=== PATIENT | female | born 1950 | race Caucasian/White ===

== ENCOUNTER 2017-05-14 00:53 | Inpatient (IN) | payer MEDICARE ==
[~2017-05-14] VITALS: Ht 157.5 cm; Wt 67.0 kg
[2017-05-14] VITALS (36 sets, daily range): BP systolic 104–157; BP diastolic 70–112; PULSE 79–101; RESP 16–30; TEMP 97.5–98.1; O2SAT 91–98
[2017-05-14] MEDS ORDERED: SODIUM CHLOR 0.9% 1000 ML INJ 1,000 ML IV ONE (00:57)
--- NOTE | 2017-05-14 01:06 | PD ---
HPI Chief Complaint: Stroke Alert Time Seen by Provider: 00:57 Travel History International Travel<30 days: No Contact w/Intl Traveler<30days: No Traveled to known affect area: No History of Present Illness HPI LAST SEEN NORMAL 930P BY HER THEY WENT TO SLEEP... WOKE UP TO NOISE MADE BY HER AT MIDNIGHT, SHE WAS NOT ABLE TO GET OUT OF BED, 911 CALLED, PER EMS FOUND SLURRED SPEECH , FACIAL DROOP AND ENTIRE LEFT UE/LE PARALYSIS ON SCENE, NL GLUC ON SCENE TRANSPORTED A STROKE ALERT( ENTIRE HISTORY PROVIDED BY , ALSO THEY ARE NOT LOCALS AND ARE VISITING FROM [place]) PER H/O HTN, TIA, DEFIBRILLATOR FOR ARRHYTHMIA AND POSSIBLY CHF BUT DEFINITELY NO STENT OR OPEN HEART SURGERY PFSH Past Medical History ?: Not Social History Tobacco Use: No Allergies-Medications (Allergen,Severity, Reaction): Coded Allergies: Penicillin (Verified Allergy, Unknown, 05/14/17) Reported Meds & Prescriptions Reported Meds & Active Scripts Active Reported [Losartan Potassium] 50 Mg PO DAILY Aspirin 81 Mg Chew 81 Mg CHEW DAILY Potassium Chloride ER (Potassium Chloride) 20 Meq Tab 20 Meq PO DAILY Vitamin D-1000 (Cholecalciferol) 1,000 Unit Tab 1,000 Units PO DAILY Sertraline (Sertraline HCl) 50 Mg Tab 50 Mg PO DAILY Review of Systems ROS Limitations: Clinical Condition Except as stated in HPI: all other systems reviewed are Neg Neurologic: Positive: Weakness, Coordination Problem, Slurred Speech Physical Exam Narrative GENERAL: SKIN: Warm and dry. HEAD: Atraumatic. Normocephalic. EYES: Pupils equal and round. No scleral icterus. No injection or drainage. ENT: No nasal bleeding or discharge. Mucous membranes pink and moist. NECK: Trachea midline. No JVD. CARDIOVASCULAR: Regular rate and rhythm. RESPIRATORY: No accessory muscle use. Clear to auscultation. Breath sounds equal bilaterally. GASTROINTESTINAL: Abdomen soft, non-tender, nondistended. Hepatic and splenic margins not palpable. MUSCULOSKELETAL: Extremities without clubbing, cyanosis, or edema. No obvious deformities. NEUROLOGICAL: Awake and alert. DYSARTHRIC SPEECH, LEFT FACIAL DROOP, BLE 5/5, LUE 4/5, RUE 5/5 PSYCHIATRIC: Appropriate mood and affect; insight and judgment normal. Data Data Last Documented VS Vital Signs Date Time Temp Pulse Resp B/P Pulse Ox O2 Delivery O2 Flow Rate FiO2 05/14/17 02:13 93 145/112 98 05/14/17 02:00 Nasal Cannula 2 05/14/17 01:25 20 Orders Diet Npo (05/14/17 Breakfast) Activity Bed Rest (05/14/17 ) Electrocardiogram (05/14/17 ) I-Stat Creatinine (05/14/17 00:57) I-Stat Profile (05/14/17 00:57) Prothrombin Time / Inr (Pt) (05/14/17 00:57) Act Partial Throm Time (Ptt) (05/14/17 00:57) Complete Blood Count With Diff (05/14/17 00:57) Fibrinogen (05/14/17 00:57) Creatine Kinase (Cpk) (05/14/17 00:57) Troponin I (05/14/17 00:57) Ua Includes Microscopic (05/14/17 00:57) Drug Screen, Random Urine (05/14/17 00:57) Type And Screen (05/14/17 00:57) Chest, Single Ap (05/14/17 ) Cta Brain W Iv Contrast W 3d (05/14/17 00:57) Cta Neck W Iv Contrast W 3d (05/14/17 00:57) Beta Hcg (Quant/Titer) (05/14/17 00:57) Consult Neurology (05/14/17 ) Blood Glucose (05/14/17 00:57) Ecg Monitoring (05/14/17 00:57) Neuro Checks Q2HX12,Q4H (05/14/17 00:57) Nursing Bedside Swallow Assess .ONCE (05/14/17 00:57) Iv Access Insert/Monitor (05/14/17 00:57) NPO (05/14/17 00:57) Oximetry (05/14/17 00:57) Oxygen Administration (05/14/17 00:57) Sodium Chlor 0.9% 1000 Ml Inj (Ns 1000 M (05/14/17 00:57) Resp Oxygen Shahriar C Titrat 1-4 L (05/14/17 00:57) Cath For Specimen (05/14/17 00:57) (Hub Use Only)Inp Phy Cons/Ref (05/14/17 ) Ct Brain W/O Iv Contrast(Rout) (05/14/17 ) Clopidogrel (Plavix) (05/14/17 01:30) Iohexol 350 Inj (Omnipaque 350 Inj) (05/14/17 01:26) Admit Order (Ed Use Only) (05/14/17 02:28) Labs Laboratory Tests Test 05/14/17 05/14/17 01:00 01:43 White Blood Count 6.6 TH/MM3 Red Blood Count 4.57 MIL/MM3 Hemoglobin 16.0 GM/DL Bedside Hemoglobin 16.7 G/DL Hematocrit 46.6 % Bedside Hematocrit 49.0 % Mean Corpuscular Volume 101.8 FL Mean Corpuscular Hemoglobin 34.9 PG Mean Corpuscular Hemoglobin 34.3 % Concent Red Cell Distribution Width 14.3 % Platelet Count 216 TH/MM3 Mean Platelet Volume 7.5 FL Neutrophils (%) (Auto) 64.7 % Lymphocytes (%) (Auto) 22.6 % Monocytes (%) (Auto) 10.6 % Eosinophils (%) (Auto) 1.4 % Basophils (%) (Auto) 0.7 % Neutrophils # (Auto) 4.3 TH/MM3 Lymphocytes # (Auto) 1.5 TH/MM3 Monocytes # (Auto) 0.7 TH/MM3 Eosinophils # (Auto) 0.1 TH/MM3 Basophils # (Auto) 0.0 TH/MM3 CBC Comment DIFF FINAL Differential Comment Prothrombin Time 13.0 SEC Prothromb Time International 1.2 RATIO Ratio Activated Partial 25.2 SEC Thromboplast Time Fibrinogen 366 mg/dL Bedside Sodium 143 MMOL/L Bedside Potassium 3.0 MMOL/L Bedside Chloride 102 MMOL/L Bedside Blood Urea Nitrogen 14 MG/DL Bedside Creatinine 0.5 MG/DL Bedside Glucose 144 MG/DL Hemoglobin A1c 6.6 % Total Creatine Kinase 86 U/L Troponin I 0.03 NG/ML Human Chorionic Gonadotropin, 5 MIU/ML Quant Blood Type A POSITIVE Antibody Screen NEGATIVE Blood Bank Comment Urine Color YELLOW Urine Turbidity CLEAR Urine pH 7.0 Urine Specific [place] GREATER THAN 1.050 Urine Protein 100 mg/dL Urine Glucose (UA) NEG mg/dL Urine Ketones NEG mg/dL Urine Occult Blood NEG Urine Nitrite NEG Urine Bilirubin NEG Urine Urobilinogen 4.0 MG/DL Urine Leukocyte Esterase NEG Urine RBC 6 /hpf Urine WBC 1 /hpf Urine Squamous Epithelial 4 /hpf Cells Urine Mucus FEW /lpf Urine Opiates Screen NEG Urine Barbiturates Screen NEG Urine Amphetamines Screen NEG Urine Benzodiazepines Screen NEG Urine Cocaine Screen NEG Urine Cannabinoids Screen NEG MDM Medical Decision Making Medical Screen Exam Complete: Yes Emergency Medical Condition: Yes Medical Record Reviewed: Yes Differential Diagnosis ICH VS ISCHEMIC CVA V HYPOGLYCEMIA V DYSRHYTHMIA V ATYPICAL [place] Narrative Course PATIENT PRESENTED WITH CVA SYMPTOMS, WITHIN TIME FRAME, HOWEVER DUE TO RAPIDITY OF IMPROVEMENT FROM COMPLETE FLACIDITY ON LEFT SIDE TO FULL STRENGTH ON LLE, 4/ 5 ON LUE...BUT WITH LEFT SIDED FACIAL DROOP STILL PRESENT. D/W DR WALL NEUROLOGIST, WHO RECC NO LYTICS Critical Care Narrative CRITICAL CARE NOTE: With evaluation of the patient, labs, EKG, receipt of radiologic studies, administration of medications, reevaluation the patient and discussion of the patient with the admitting physicians, the total critical care time was [60] minutes. Time to perform other separately billable procedures was not included in the critical care time. Physician Communication Physician Communication D/W DR WALL WHO STATED THAT DUE TO SIGNIFICANT IMPROVEMENT THAT PATIENT IS NOT A TPA CANDIDATE, RECC PLAVIX AT THIS POINT PROVIDED CT HEAD DOES NOT SHOW ANY ICH PER RAD DR FERNANDEZ AT 0114., WILL GIVE PLAVIX Diagnosis Primary Impression: ACUTE CVA V TIA Admitting Information Admitting Physician Requests: Admit Scripts Hydrochlorothiazide 25 Mg Tab25 Mg PO DAILY 30 Days Prov:Cuco Huston MD 05/17/17 Carvedilol (Coreg)12.5 Mg Tab25 Mg PO Q12HR 30 Days Prov:Cuco Huston MD 05/17/17 Apixaban (Eliquis)5 Mg Tab5 Mg PO BID 30 Days Prov:Cuco Huston MD 05/17/17 Glenn Ndiaye MD May 14, 2017 01:06
[2017-05-14 01:14] LABS: AUTOMATED NEUTROPHIL # 4.3 TH/MM3 (1.8-7.7); BASOPHIL % 0.7 % (0.0-2.0); EOSINOPHIL # 0.1 TH/MM3 (0-0.4); EOSINOPHIL % 1.4 % (0.0-4.0); HEMATOCRIT 46.6 % (35.0-46.0); HEMO FLAGS DIFF FINAL; LYMPH % 22.6 % (9.0-44.0); LYMPHOCYTE # 1.5 TH/MM3 (1.0-4.8); MEAN CELL VOLUME 101.8 FL (80.0-100.0); MEAN CORPUSCULAR HEMOGLOBIN 34.9 PG (27.0-34.0); MEAN CORPUSCULAR HGB CONC 34.3 % (32.0-36.0); MONO % 10.6 % (0.0-8.0); NEUT % 64.7 % (16.0-70.0); PLATELET COUNT 216 TH/MM3 (150-450); RED BLOOD COUNT 4.57 MIL/MM3 (4.00-5.30); RED CELL DISTRIBUTION WIDTH 14.3 % (11.6-17.2); WHITE BLOOD COUNT 6.6 TH/MM3 (4.0-11.0)
--- NOTE | 2017-05-14 01:16 | RADRPT ---
EXAM DATE/TIME: 05/14/2017 01:03 [facility] COMPARISON: No previous studies available for comparison. INDICATIONS : Stroke alert. Left sided facial weakness. RADIATION DOSE: 56.35 CTDIvol (mGy) This report was called by myself to Dr. Ndiaye at 1: 14 hours. MEDICAL HISTORY : Cerebrovascular disease. SURGICAL HISTORY : None. ENCOUNTER: Initial ACUITY: 1 day PAIN SCALE: Non-responsive LOCATION: cranial TECHNIQUE: Multiple contiguous axial images were obtained of the head. Using automated exposure control and adj ustment of the mA and/or kV according to patient size, radiation dose was kept as low as reasonably a chievable to obtain optimal diagnostic quality images. DICOM format image data is available electro nically for review and comparison. FINDINGS: There is no evidence for intracranial hemorrhage, mass effect, mass lesions, or edema. The visualize d bony structures appear intact. Moderate degree of brain atrophy is seen. Moderate periventricular white matter changes are seen nonspecific mostly consistent with chronic small vessel ischemic change s. There are no signs of acute infarction for technique. CONCLUSION: Chronic and small vessel ischemic changes without any evidence for acute hemorrhage o r mass effect. Bridger Medrano MD on May 14, 2017 at 1:12 Board Certified Radiologist. This report was verified electronically.
[2017-05-14] MEDS ORDERED: IOHEXOL 350 MG/ML 10 ML VIAL (for RAD DIAG) IV ONE (01:26)
[2017-05-14 01:29] LABS: APTT (PATIENT) 25.2 SEC (24.3-30.1); INTERNATIONAL NORMALIZED RATIO 1.2 RATIO
[2017-05-14] MEDS ORDERED: CLOPIDOGREL 300 MG TAB PO ONE ×2 (01:30→12:45)
--- NOTE | 2017-05-14 01:35 | RADRPT ---
EXAM DATE/TIME: 05/14/2017 01:09 [facility] COMPARISON: CT BRAIN W/O CONTRAST, May 14, 2017, 1:03. INDICATIONS : Stroke alert. Left sided weakness. IV CONTRAST: 75 cc Omnipaque 350 (iohexol) IV ; Cumulative dose for multiple exams. RADIATION DOSE: 14.83 CTDIvol (mGy) ; Combined studies MEDICAL HISTORY : Cerebrovascular disease. SURGICAL HISTORY : Pacemaker. ENCOUNTER: Initial ACUITY: 1 day PAIN SCALE: Non-responsive LOCATION: cranial TECHNIQUE: Volumetric scanning was performed using a multi-row detector CT scanner. The data was post processed with a variety of visualization algorithms including full volume maximum intensity projection, multi -planar sliding thin slab reformation, curved planar reformation, and surface rendering techniques. Using automated exposure control and adjustment of the mA and/or kV according to patient size, radiat ion dose was kept as low as reasonably achievable to obtain optimal diagnostic quality images. DICO M format image data is available electronically for review and comparison. FINDINGS: There is excellent visualization of the major intracranial arteries out to the second-order branch ve ssels. There is no evidence for aneurysm, vessel truncation or stenosis, and no evidence for vascula r malformation. There is minimal atherosclerotic plaquing involving the supraclinoid ICA on the left. CONCLUSION: Unremarkable study except for minimal atherosclerotic plaquing on the left side. Bridger Medrano MD on May 14, 2017 at 1:31 Board Certified Radiologist. This report was verified electronically.
[2017-05-14] MEDS ORDERED: SERT-132 PO (01:36)
[2017-05-14] MEDS ORDERED: VITA1000 PO (01:41)
[2017-05-14] MEDS ORDERED: ASPI81CH CHEW (01:41)
[2017-05-14] MEDS ORDERED: POTA-163 PO (01:41)
--- NOTE | 2017-05-14 01:44 | RADRPT ---
EXAM DATE/TIME: 05/14/2017 01:23 [facility] COMPARISON: No previous studies available for comparison. INDICATIONS : Stroke Alert MEDICAL HISTORY : Unobtainable SURGICAL HISTORY : Unobtainable ENCOUNTER: Initial ACUITY: 1 day PAIN SCORE: 6/10 LOCATION: Bilateral chest FINDINGS: The lungs are clear without infiltrate, nodule, or mass. There is no appreciable pleural effusion fo r technique. Heart and mediastinum are unremarkable. Left subclavian transvenous pacer wire is prese nt with tip in the right ventricle. There are atherosclerotic calcifications of the aorta due to marine chronometer assembler pina atherosclerotic disease. CONCLUSION: No acute cardiopulmonary disease. Bridger Medrano MD on May 14, 2017 at 1:41 Board Certified Radiologist. This report was verified electronically.
--- NOTE | 2017-05-14 01:46 | RADRPT ---
EXAM DATE/TIME: 05/14/2017 01:09 [facility] COMPARISON: CTA BRAIN W 3D RECON, May 14, 2017, 1:09. CT BRAIN W/O CONTRAST, May 14, 2017, 1:03. INDICATIONS : Stroke alert. Left sided weakness. IV CONTRAST: 75 cc Omnipaque 350 (iohexol) IV ; Cumulative dose for multiple exams. RADIATION DOSE: 14.83 CTDIvol (mGy) ; Combined studies MEDICAL HISTORY : Cerebrovascular disease. SURGICAL HISTORY : Pacemaker. ENCOUNTER: Initial ACUITY: 1 day PAIN SCALE: Non-responsive LOCATION: neck Elevated flow velocities and ICA/CCA ratios have been found to correlate with increased degrees of vessel stenosis, calculated as percentage of diameter relative to a normal segment of distal ICA/CCA. TECHNIQUE: Volumetric scanning was performed using a multirow detector CT scanner. The data was post processed with a variety of visualization algorithms including full-volume maximum intensity projection, multip lanar sliding thin-slab reformation, curved-planar reformation, and surface-rendering techniques. Us ing automated exposure control and adjustment of the mA and/or kV according to patient size, radiatio n dose was kept as low as reasonably achievable to obtain optimal diagnostic quality images. DICOM f ormat image data is available electronically for review and comparison. FINDINGS: AORTIC ARCH: There is a three-vessel origin of the great vessels from the aorta. No evidence of ostial narrowing. Minimal atherosclerotic plaquing is identified within the aortic arch and bilateral ICAs. RIGHT CAROTID: The common carotid artery is intact. The carotid bulb has a normal configuration without ulceration o r narrowing. The internal carotid artery lumen is smooth without stenosis. The external carotid trace ry is intact. LEFT CAROTID: The common carotid artery is intact. The carotid bulb has a normal configuration without ulceration or narrowing. The internal carotid artery lumen is smooth without stenosis. The external carotid ar courtney is intact. VERTEBRALS: The vertebral arteries have a symmetric diameter. No stenotic lesions are seen. CONCLUSION: Minimal atherosclerotic plaquing, otherwise unremarkable. Bridger Medrano MD on May 14, 2017 at 1:42 Board Certified Radiologist. This report was verified electronically.
[2017-05-14] MEDS ORDERED: FURO40TA PO (01:49)
[2017-05-14] MEDS ORDERED: Losartan Potassium PO (01:49)
[2017-05-14] MEDS ORDERED: METO25TA6 PO (01:49)
[2017-05-14 01:55] LABS: BLOOD, URINE NEG (NEG); GLUCOSE,URINE NEG (NEG); KETONE, URINE NEG (NEG); MUCUS URINE FEW /lpf (OCC); NITRITE,URINE NEG (NEG); SQUAMOUS EPITHELIAL CELL URINE 4 /hpf (0-5); URINE COLOR YELLOW (YELLW/STRAW)
[2017-05-14] MEDS ORDERED: SODIUM CHLORIDE 0.9% FLUSH 5 ML FLUSH IV FLUSH PRN (03:00)
[2017-05-14 04:55] LABS: AMPHETAMINE, URINE NEG (NEG); BARBITURATES, URINE NEG (NEG); COCAINE, URINE NEG (NEG)
--- NOTE | 2017-05-14 11:33 | EKG ---
Date Performed: 05/14/2017 Time Performed: 00:59:07 PTAGE: 67 years EKG: Sinus rhythm WITH OCCASIONAL VENTRICULAR PREMATURE COMPLEXES LEFT ATRIAL ENLARGEMENT Possible SEPTAL MYOCARDIAL I NFARCTION ABNORMAL ECG NO PREVIOUS TRACING DOCTOR: Rajiv Saravia Interpretating Date/Time 05/14/2017 11:31:59
--- NOTE | 2017-05-14 12:37 | HHI.HP ---
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 Patient states that on both episodes she was placed she was on hormone replacement therapy then. 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 Patient tried to get back to bed however was having difficulty getting back to bed. heard her and found her to trying to climb into the bed and was on the side of the bed trying to get into bed. Her speech was very slurred per her . noted the patient appears confused "not really there". Patient reported that her she cannot feel her left side. 911 was called and patient was promptly brought in here and admitted for further evaluation. No seizure activity was reported by . Patient denies any fever chills , nausea or vomiting. Patient baseline have leg swelling at the end of the day. With easy fatigability. Denies any orthopnea. Review of Systems Constitutional: DENIES: Diaphoretic episodes, Fatigue, Fever, Weight gain, Weight loss, Chills, Dizziness, Change in appetite, Night Sweats Endocrine: DENIES: Abnorml menstrual pattern, Heat/cold intolerance, Polydipsia , Polyuria, Polyphagia Eyes: COMPLAINS OF: Vision loss (blind spot of the right eye since 1995) Ears, nose, mouth, throat: DENIES: Tinnitus, Hearing loss, Vertigo, Nasal discharge, Oral lesions, Throat pain, Hoarseness, Ear Pain, Running Nose, Epistaxis, Sinus Pain, Toothache, Odynophagia Respiratory: DENIES: Apneas, Cough, Snoring, Wheezing, Hemoptysis, Sputum production, Shortness of breath Cardiovascular: DENIES: Chest pain, Palpitations, Syncope, Dyspnea on Exertion , PND, Lower Extremity Edema, Orthopnea, Claudication Gastrointestinal: DENIES: Abdominal pain, Black stools, Bloody stools, Constipation, Diarrhea, Nausea, Vomiting, Difficulty Swallowing, Anorexia Genitourinary: DENIES: Abnormal vaginal bleeding, Dysmenorrhea, Dyspareunia, Sexual dysfunction, Urinary frequency, Urinary incontinence, Urgency, Hematuria , Dysuria, Nocturia, Vaginal discharge Musculoskeletal: DENIES: Joint pain, Muscle aches, Stiffness, Joint Swelling, Back pain, Neck pain Integumentary: DENIES: Abnormal pigmentation, Pruritus, Rash, Nail changes, Breast masses, Breast skin changes, Nipple discharge Hematologic/lymphatic: DENIES: Bruising, Lymphadenopathy Immunologic/allergic: DENIES: Eczema, Urticaria Neurologic: DENIES: Abnormal gait, Headache, Localized weakness, Paresthesias, Seizures, Speech Problems, Tremor, Poor Balance Psychiatric: DENIES: Anxiety, Confusion, Mood changes, Depression, Hallucinations, Agitation, Suicidal Ideation, Homicidal Ideation, Delusions Past Family Social History Past Medical History Hypertension CVA involving the right optic nerve with residual but blind spot in 1995 that time patient was on hormone replacement therapy 2005 with left-sided CVA with left-sided weakness through the resolve no residual deficit at that time was also on replacement therapy hormone. Hyperlipidemia but was unable to tolerate statins. Dilated Cardiomyopathy in November [address] When asked about etiology negative for ischemia on cardiac catheter. The specimen to be secondary to an infection probably viral Depression Past Surgical History AICD Reported Medications Zoloft 50 mg daily Toprol-XL 25 mg daily Furosemide 40 mg daily Aspirin 81 mg daily Cozaar 50 mg daily Potassium chloride 20 mEq daily Vitamin D daily Allergies: Coded Allergies: Penicillin (Verified Allergy, Unknown, 05/14/17) Family History Noncontributory Social History Smokes three quarters of a pack per day Occasional night With Blood, Denies Any Substance Abuse Physical Exam Vital Signs Vital Signs Date Time Temp Pulse Resp B/P Pulse Ox O2 Delivery O2 Flow Rate FiO2 05/14/17 06:25 97.7 95 20 142/97 97 05/14/17 05:54 97 132/94 91 Nasal Cannula 2 05/14/17 05:26 92 139/94 91 Nasal Cannula 2 05/14/17 05:02 91 119/77 92 Nasal Cannula 2 05/14/17 04:57 84 132/87 93 Nasal Cannula 2 05/14/17 04:33 89 139/94 94 Nasal Cannula 2 05/14/17 04:23 90 143/93 96 Nasal Cannula 2 05/14/17 03:43 91 140/99 96 Nasal Cannula 2 05/14/17 03:04 96 134/92 94 Nasal Cannula 2 05/14/17 03:02 97 147/99 95 Nasal Cannula 05/14/17 03:01 93 154/107 96 Nasal Cannula 2 05/14/17 02:13 93 145/112 98 05/14/17 02:00 95 141/101 96 Nasal Cannula 2 05/14/17 01:43 97 137/100 98 Nasal Cannula 2 05/14/17 01:41 101 153/97 97 Nasal Cannula 2 05/14/17 01:25 99 20 149/102 98 Nasal Cannula 2 05/14/17 01:24 96 Nasal Cannula 2 05/14/17 01:24 96 Nasal Cannula 2 05/14/17 01:20 98 97 Nasal Cannula 2 05/14/17 01:03 94 18 140/96 96 Nasal Cannula 2 05/14/17 00:56 99 18 148/98 96 Physical Exam GENERAL: This is a well-nourished, well-developed patient, in no apparent distress. SKIN: No rashes, ecchymoses or lesions. Cool and dry. HEAD: Atraumatic. Normocephalic. No temporal or scalp tenderness. EYES: Pupils equal round and reactive. Extraocular motions intact. No scleral icterus. No injection or drainage. ENT: Nose without bleeding,. Throat without erythema, tonsillar hypertrophy or exudate. Uvula midline. Airway patent. NECK: Trachea midline. No JVD or lymphadenopathy. Supple, nontender, no meningeal signs. No bruit CARDIOVASCULAR: Regular rate and rhythm without murmurs, gallops, or rubs. RESPIRATORY: Clear to auscultation. Breath sounds equal bilaterally. No wheezes , rales, or rhonchi. GASTROINTESTINAL: Abdomen soft, non-tender, nondistended. No hepato-splenomegaly , or palpable masses. No guarding. MUSCULOSKELETAL: Extremities without clubbing, cyanosis, or edema. No joint tenderness, effusion, or edema noted. No calf tenderness. Negative Homans sign bilaterally. NEUROLOGICAL: Awake and alert. Oriented to place and person. Speech mildly slurred. Her this is much improved since the onset this morning Cranial nerves II through XII intact. Motor and sensory grossly within normal limits. Five out of 5 muscle strength in all muscle groups. Slurred speech. Gait testing deferred Laboratory Laboratory Tests Test 05/14/17 05/14/17 01:00 01:43 White Blood Count 6.6 Red Blood Count 4.57 Hemoglobin 16.0 Bedside Hemoglobin 16.7 Hematocrit 46.6 Bedside Hematocrit 49.0 Mean Corpuscular Volume 101.8 Mean Corpuscular Hemoglobin 34.9 Mean Corpuscular Hemoglobin 34.3 Concent Red Cell Distribution Width 14.3 Platelet Count 216 Mean Platelet Volume 7.5 Neutrophils (%) (Auto) 64.7 Lymphocytes (%) (Auto) 22.6 Monocytes (%) (Auto) 10.6 Eosinophils (%) (Auto) 1.4 Basophils (%) (Auto) 0.7 Neutrophils # (Auto) 4.3 Lymphocytes # (Auto) 1.5 Monocytes # (Auto) 0.7 Eosinophils # (Auto) 0.1 Basophils # (Auto) 0.0 CBC Comment DIFF FINAL Differential Comment Prothrombin Time 13.0 Prothromb Time International 1.2 Ratio Activated Partial 25.2 Thromboplast Time Fibrinogen 366 Bedside Sodium 143 Bedside Potassium 3.0 Bedside Chloride 102 Bedside Blood Urea Nitrogen 14 Bedside Creatinine 0.5 Bedside Glucose 144 Total Creatine Kinase 86 Troponin I 0.03 Human Chorionic Gonadotropin, 5 Quant Blood Type A POSITIVE Antibody Screen NEGATIVE Blood Bank Comment Urine Color YELLOW Urine Turbidity CLEAR Urine pH 7.0 Urine Specific [place] GREATER THAN 1.050 Urine Protein 100 Urine Glucose (UA) NEG Urine Ketones NEG Urine Occult Blood NEG Urine Nitrite NEG Urine Bilirubin NEG Urine Urobilinogen 4.0 Urine Leukocyte Esterase NEG Urine RBC 6 Urine WBC 1 Urine Squamous Epithelial 4 Cells Urine Mucus FEW Urine Opiates Screen NEG Urine Barbiturates Screen NEG Urine Amphetamines Screen NEG Urine Benzodiazepines Screen NEG Urine Cocaine Screen NEG Urine Cannabinoids Screen NEG Result Diagram: 05/14/17 0100 Imaging Last 24 hours Impressions Neck CTA 05/14/17 0057 Signed Impressions: Service Date/Time: Sunday, May 14, 2017 01:09 - CONCLUSION: Minimal atherosclerotic plaquing, otherwise unremarkable. Bridger Medrano MD Head CTA 05/14/17 0057 Signed Impressions: Service Date/Time: Sunday, May 14, 2017 01:09 - CONCLUSION: Unremarkable study except for minimal atherosclerotic plaquing on the left side. Bridger Medrano MD Head CT 05/14/17 0000 Signed Impressions: Service Date/Time: Sunday, May 14, 2017 01:03 - CONCLUSION: Chronic and small vessel ischemic changes without any evidence for acute hemorrhage or mass effect. Bridger Medrano MD Chest X-Ray 05/14/17 0000 Signed Impressions: Service Date/Time: Sunday, May 14, 2017 01:23 - CONCLUSION: No acute cardiopulmonary disease. Bridger Medrano MD Assessment and Plan Assessment and Plan 67-year-old female presenting with recurrent CVA presenting with slurring of speech and left-sided weakness TIA rule out CVA neurologic symptoms improving- left-sided weakness and speech improved Continue flat in bed continue on normal saline continue on aspirin. We'll add Plavix 75 mg daily. Consult neurology service Neuro vitals monitoring Workup with 2-D echo CTA neck shows no stenosis in the carotids. PT/OT speech therapy consult HYpokalemia- replace IV. recheck in am Per patient she was prescribed Potassium pills- not filled yet History of hypertension monitor. permissive hypertension. restart home meds in next few days History of Cardiomyopathy status post AICD . Not in clinical failure. Check a 2-D echo. patient on ARB History of hyperlipidemia unable to tolerate statins dietitian consult. Check a baseline lipid panel History of depression. Lovenox for DVT prophylaxis Discussed Condition With Patient and at bedside Physician Certification 2 Midnight Certification Type: Admission for Inpatient Services Order for Inpatient Services The services are ordered in accordance with Medicare regulations or non- Medicare payer requirements, as applicable. In the case of services not specified as inpatient-only, they are appropriately provided as inpatient services in accordance with the 2-midnight benchmark. Estimated LOS (days): 3 days is the estimated time the patient will need to remain in the hospital, assuming treatment plan goals are met and no additional complications. Post-Hospital Plan: Not yet determined Cuco Huston MD May 14, 2017 12:37 Cuco Huston MD May 14, 2017 12:37
--- NOTE | 2017-05-14 12:59 | ECHRPT ---
Indication: CVA/TIA CONCLUSIONS BP: 142 / 97 HR: 95 Rhythm: MEASUREMENTS (Male / Female) Normal Values Technical Quality: 2D ECHO LV Diastolic Diameter PLAX 4.9 cm 4.2 - 5.9 / 3.9 - 5.3 cm LV Systolic Diameter PLAX 4.4 cm IVS Diastolic Thickness 0.8 cm 0.6 - 1.0 / 0.6 - 0.9 cm LVPW Diastolic Thickness 0.8 cm 0.6 - 1.0 / 0.6 - 0.9 cm LV Relative Wall Thickness 0.3 RV Internal Dim ED PLAX 2.1 cm LA Systolic Diameter LX 4.5 cm 3.0 - 4.0 / 2.7 - 3.8 cm M-MODE Aortic Root Diameter MM 3.1 cm AV Cusp Separation MM 2.0 cm DOPPLER MV Peak Velocity 120.0 cm/s MV Peak Gradient 5.8 mmHg MV Mean Velocity 56.3 cm/s MV Mean Gradient 2.0 mmHg MV Area PHT 3.9 cm MR Peak Velocity 492.0 cm/s MR Peak Gradient 96.8 mmHg Mitral E Point Velocity 84.3 cm/s Mitral A Point Velocity 50.7 cm/s Mitral E to A Ratio 1.7 LV E' Lateral Velocity 9.2 cm/s Mitral E to LV E' Lateral Ratio 9.2 TR Peak Velocity 335.0 cm/s TR Peak Gradient 44.9 mmHg FINDINGS LEFT VENTRICLE Mildly dilated left ventricle. Wall thickness is normal. The left ventricular systolic function is severely reduced with an estimated ejection fraction in th e range of 15-20%. There is diffuse global hypokinesis with distinct regional wall motion abnormalities. RIGHT VENTRICLE Normal right ventricular size and systolic function. LEFT ATRIUM The left atrial size is mildly dilated. RIGHT ATRIUM The right atrial size is mildly dilated. ATRIAL SEPTUM Atrial septal aneurysm is present (benign finding). No atrial level shunt is demonstrated by color flow Doppler interrogation. MITRAL VALVE Mitral annular calcification is present. Mild mitral valve regurgitation. Mild thickening of the mitral valve leaflets. AORTIC VALVE Trileaflet aortic valve. No aortic valve stenosis or regurgitation. TRICUSPID VALVE There is moderate tricuspid regurgitation. There is estimated moderate pulmonary hypertension present (50mmHg). PULMONARY VALVE The pulmonary valve is not well visualized. VESSELS The inferior vena cava is normal in size. PERICARDIUM No pericardial effusion. Campbell Gilliam MD (Electronically Signed) Final Date:14 May 2017 12:58
[2017-05-14] MEDS ORDERED: cloNIDine HCL 0.1 MG TAB PO PRN (13:15)
--- NOTE | 2017-05-14 13:56 | PD.CONS ---
HPI Service Rehabilitation Medicine Consult Requested By Dr. Hernandez Reason for Consult Comprehensive rehabilitation evaluation. Primary Care Physician Unknown History of Present Illness Julia Jc is a 67 year old right hand dominant female admitted to [facility] 05/04/17 with left hand incoordination, slurred speech and left hemisensory impairment. Head CT showed chronic small vessel ischemic changes but no acute intracranial abnormality. CTA neck minimal atherosclerotic plaque and CTA head showed minimal atherosclerotic plaque left side. Echo showed EF 15-20% with diffuse global hypokinesis with distinct regional wall abnormality. She has been started on Lovenox per Neurology recommendations. Review of Systems Constitutional: DENIES: Fatigue Eyes: DENIES: Diplopia Ears, nose, mouth, throat: DENIES: Throat pain Respiratory: DENIES: Shortness of breath Cardiovascular: DENIES: Chest pain Gastrointestinal: DENIES: Abdominal pain Genitourinary: DENIES: Urinary incontinence Neurologic: DENIES: Headache, Localized weakness, Paresthesias, Speech Problems Psychiatric: DENIES: Confusion Past Family Social History Allergies: Coded Allergies: Penicillin (Verified Allergy, Unknown, 05/14/17) Past Medical History HTN Hyperlipidemia cardiomyopathy CVA X depression Past Surgical History AICD Current Medications Current Medications Medications (Trade) Dose Ordered Sig/Victoriano Route Start Time Stop Time Status Last Admin (NS 1000 ml Inj) 1,000 ml @ 70 mls/hr [id number] ONCE IV 05/14/17 00:57 05/14/17 15:14 05/14/17 01:34 (NS Flush) 2 ml BID IV FLUSH 05/14/17 09:00 IV Flush 2 ml 2 ml UNSCH PRN IV FLUSH 05/14/17 03:00 (KCl 10 Meq Premix Inj) 100 ml @ 100 mls/hr Q1H IV 05/14/17 13:00 05/14/17 15:59 Clopidogrel Bisulfate 75 mg 75 mg DAILY PO 05/15/17 09:00 (KCl Inj/D5W-NS 1000 ml Inj) 1,005 ml @ 50 mls/hr Q20H6M IV 05/14/17 14:00 (Lovenox Inj) 30 mg Q24H SQ 05/14/17 14:00 (Catapres) 0.1 mg Q6H PRN PO 05/14/17 13:15 Family History Mother: age 96. No medical illnesses Social History Lives in [place] with . [employer]ISH[employer] was independent with all mobility and ADL' s. Smokes 3/4 ppd for 40 years. One ETOH drink per night. Exam I&O / VS Vital Signs Date Time Temp Pulse Resp B/P Pulse Ox O2 Delivery O2 Flow Rate FiO2 05/14/17 06:25 97.7 95 20 142/97 97 05/14/17 05:54 97 132/94 91 Nasal Cannula 2 05/14/17 05:26 92 139/94 91 Nasal Cannula 2 05/14/17 05:02 91 119/77 92 Nasal Cannula 2 05/14/17 04:57 84 132/87 93 Nasal Cannula 2 05/14/17 04:33 89 139/94 94 Nasal Cannula 2 05/14/17 04:23 90 143/93 96 Nasal Cannula 2 05/14/17 03:43 91 140/99 96 Nasal Cannula 2 05/14/17 03:04 96 134/92 94 Nasal Cannula 2 05/14/17 03:02 97 147/99 95 Nasal Cannula 05/14/17 03:01 93 154/107 96 Nasal Cannula 2 05/14/17 02:13 93 145/112 98 05/14/17 02:00 95 141/101 96 Nasal Cannula 2 05/14/17 01:43 97 137/100 98 Nasal Cannula 2 05/14/17 01:41 101 153/97 97 Nasal Cannula 2 05/14/17 01:25 99 20 149/102 98 Nasal Cannula 2 05/14/17 01:24 96 Nasal Cannula 2 05/14/17 01:24 96 Nasal Cannula 2 05/14/17 01:20 98 97 Nasal Cannula 2 05/14/17 01:03 94 18 140/96 96 Nasal Cannula 2 05/14/17 00:56 99 18 148/98 96 General: No acute distress Respiratory: Lungs CTA, Non-labored respirations, BS equal Gastrointestinal: Positive Bowel Sounds, Non-Distended, Non-Tender Cardiovascular: Normal rate Musculoskeletal: Swelling (None in distal LE) Psychiatric: Cooperative, Appropriate mood & affect Orientation: oriented to Self, oriented to Place, oriented to Time, oriented to Situation Neurologic: Pupils (PERRLA), EOM (Intact), Facial Symmetry (Mild left nasolabial flattening), Speech (No dysarthria or word finding difficulties), Coordination (Intact) Motor: Right Upper Extremity (5/5), Left Upper Extremity (5/5), Right Lower Extremity (5/5), Left Lower Extremity (5/5) DTRs: Normal Clonus: Negative Assessment and Plan Assessment 1. TIA versus CVA with slurred speech and left sided sensory impairment/weakness 2. AICD 3. Hypertension 4. Previous CVA 1995 and 2005 5. Dilated Cardiomyopathy 6. Depression Plan 1. ST has evaluated swallow and tolerating soft diet with thin liquids. ST following to monitor 2. PT has mobilized up to bedside chair SBA and patient ambulated 5 feet X 4 SBA. Continue to advance anticipating that patient should progress with gait 3. Will follow while hospitalized and at discharge as needed. Anticipate that patient will be able to be dishcarged without continued rehab. Discussed with patient and and questions answered. Thank you for this consult. Ledy Slater MD May 14, 2017 13:56
[2017-05-14] MEDS ORDERED: ENOXAPARIN SODIUM 30 MG/0.3 ML SYRINGE SQ SCH ×2 (14:00→20:00)
[2017-05-14] MEDS: POTASSIUM CHLOR 10 MEQ PREMIX 100 ML IV SCH ×3 (14:23→18:05)
[2017-05-14 14:36] LABS: HDL CHOLESTEROL 38.7 MG/DL (40.0-60.0)
[2017-05-14 14:41] LABS: ALKALINE PHOSPHATASE 109 U/L (45-117); ALT (GPT) 43 U/L (10-53); TOTAL BILIRUBIN ADULT 1.5 MG/DL (0.2-1.0)
[2017-05-14] MEDS ORDERED: CHLORHEXIDINE GLUCONATE 2 % 1 PACK (2 CLOTHS)(extra cloths) TOPICAL PRN (14:45)
[2017-05-14 14:54] LABS: ANION GAP 8 MEQ/L (5-15); AST (GOT) 42 U/L (15-37); BICARBONATE 23.4 MEQ/L (21.0-32.0); BLOOD UREA NITROGEN 12 MG/DL (7-18); CHLORIDE 108 MEQ/L (98-107); GLOMERULAR FILTRATION RATE 118 ML/MIN (>89); SODIUM (NA) 139 MEQ/L (136-145)
[2017-05-14 14:55] LABS: POTASSIUM 3.7 MEQ/L (3.5-5.1)
--- NOTE | 2017-05-14 16:19 | MB ---
cc: MARIVEL WALL M.D. DATE OF CONSULTATION: 05/14/2017 REASON FOR CONSULTATION: ADDENDUM: Since the original dictation, I have received the results of the echocardiogram on this patient which shows ejection fraction 15 to 20% with diffuse global hypokinesis of the left ventricle with distinct regional wall motion abnormalities. Left atrial size is mildly dilated. Right atrium mildly dilated. Atrial septal aneurysm was present. Because of the probability for cardiogenic embolization causing the TIA, I would recommend at this point stopping the Plavix and starting full dose Lovenox. Will consult cardiology as well for recommendations regarding long-term anticoagulation. MD BECCA Paul/CORINNE /4:17 PM /4:21 PM
--- NOTE | 2017-05-14 16:28 | MB ---
cc: MARIVEL WALL DATE OF CONSULTATION: 05/14/2017 REASON FOR CONSULTATION Stroke alert. HISTORY OF PRESENT ILLNESS Ms. Jc is a 67-year-old female who yesterday suddenly developed acute onset of left-sided weakness involving the left arm as well as the left leg with slurred speech. She was last seen normal around 09:30 p.m. She came to the ER and a stroke alert was called. By the time she got to the ER, however, she had significant improvement in her left-sided strength. Discussed her case with Dr. Ndiaye. She had resolved essentially back to normal and at that time I recommended not giving TPA due to the rapid improvement. She was on aspirin, so I recommend starting Plavix. Today she feels back to her baseline state. PAST MEDICAL HISTORY 1. She has a history of pacemaker defibrillator in place. 2. Hypertension. 3. Stroke in the past involving vision in 1995 and also in 2005, left-sided weakness. 4. Dilated cardiomyopathy with AICD in place. MEDICATIONS Current medications are: 1. Plavix 75 mg daily. 2. Lovenox 30 mg subcu daily. 3. Clonidine p.r.n. NEUROLOGIC EXAMINATION VITAL SIGNS: Blood pressure is 142/97, pulse is 95, respiratory rate 20, temperature 97.7 degrees. Higher cortical functions are normal. Cranial nerves II-XII are normal in detail. Motor exam 5/5 strength of all major groups in both upper and lower extremities. There is no drift. Fine motor skills within normal limits. Reflexes are symmetric. IMAGING STUDIES CT of the brain shows chronic ischemic demyelinization, no acute change is present. She had a CTA of the brain which was normal with no sign of any large vessel occlusion. CTA of the neck is normal with no significant plaquing. LABORATORY DATA White count 6600, hemoglobin 16, hematocrit 46.6%, platelet count 216,000. PT 13, INR 1.2, APTT 25.2. Tox screen is negative. Sodium is 143, potassium 3, chloride is 102, BUN is 14, creatinine 0.5, glucose 144, LDL cholesterol 57, HDL 38.7, cholesterol 2.89. IMPRESSION Transient ischemic attack, now resolved, history of cardiomyopathy. RECOMMENDATIONS Continue Plavix along with aspirin for now. Will check an echocardiogram. I would like to obtain a cardiology consult as well to assess as to whether or not the patient would be need any type of anticoagulation given her cardiomyopathy and TIA symptoms. ADDENDUM The patient was not a candidate for IV TPA last night as she had rapid improvement in her symptoms back to normal. MD BECCA Paul/SEAN /4:05 PM /4:11 PM
[2017-05-14 17:35] LABS: HEMOGLOBIN A1a 1.2 %; HEMOGLOBIN A1b 1.9 %; HEMOGLOBIN Ao 83.6 %; HEMOGLOBIN LA1C 2.1 %; HEMOGLOBIN P3 4.3 %
[2017-05-14] MEDS ORDERED: METOPROLOL SUCCINATE 25 MG EXTENDED RELEASE TAB PO SCH (19:30)
[2017-05-14] MEDS: POTASSIUM CHLORIDE INJ 10 MEQ in DEXT 5%-NACL 0.9% 1000 ML INJ 1,000 ML IV SCH (19:35)
[2017-05-14] MEDS: LOSARTAN 50 MG TAB PO SCH (19:38)
[2017-05-14] MEDS: POTASSIUM CHLORIDE 20 MEQ CONTROLLED RELEASE TAB PO SCH (19:38)
[2017-05-14] MEDS: SERTRALINE HCL 50 MG TAB PO SCH (19:39)
[2017-05-14] MEDS: ENOXAPARIN SODIUM 30 MG/0.3 ML SYRINGE SQ SCH (19:39)
[2017-05-14] MEDS: SODIUM CHLORIDE 0.9% FLUSH 5 ML FLUSH IV FLUSH SCH (19:40)
[2017-05-14] MEDS ORDERED: diphenhydrAMINE HCL 25 MG CAP PO ONE (22:15)
[2017-05-15] VITALS (15 sets, daily range): BP systolic 123–168; BP diastolic 91–105; PULSE 68–94; RESP 18–29; TEMP 97.6–98.4; O2SAT 91–95
[2017-05-15] MEDS: CHLORHEXIDINE GLUCONATE 2 % 1 PACK (2 CLOTHS)(taper/protocol) TOPICAL SCH (04:00)
[2017-05-15 05:56] LABS: HDL CHOLESTEROL 37.1 MG/DL (40.0-60.0)
--- NOTE | 2017-05-15 08:38 | HHI.PR ---
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 Objective Vitals Vital Signs Date Time Temp Pulse Resp B/P Pulse Ox O2 Delivery O2 Flow Rate FiO2 05/15/17 06:00 85 05/15/17 06:00 85 27 138/104 91 05/15/17 05:01 93 05/15/17 05:00 94 05/15/17 04:01 98.0 82 29 168/97 92 05/15/17 04:01 82 05/15/17 03:00 85 05/15/17 01:00 94 05/15/17 00:00 98.1 88 18 136/104 92 05/14/17 23:00 92 05/14/17 22:01 91 24 135/109 94 05/14/17 22:00 90 05/14/17 20:29 93 05/14/17 20:01 97.7 96 16 126/109 93 05/14/17 20:00 96 05/14/17 19:04 97 24 138/101 94 05/14/17 19:00 98 23 95 05/14/17 18:03 93 29 133/102 94 05/14/17 18:00 93 30 94 05/14/17 17:31 93 29 131/96 93 05/14/17 17:00 95 30 135/105 92 05/14/17 16:00 97.5 100 30 157/105 92 05/14/17 16:00 100 05/14/17 14:00 91 05/14/17 12:00 98.1 93 24 128/99 92 05/14/17 12:00 93 05/14/17 10:00 92 I/O 05/14/17 05/14/17 05/14/17 05/15/17 05/15/17 05/15/17 07:00 15:00 23:00 07:00 15:00 23:00 Intake Total 1091 ml 673 ml 253 ml Output Total 250 ml Balance 841 ml 673 ml 253 ml Intake Oral 120 ml 120 ml IV Total 971 ml 553 ml 253 ml Output Urine Total 250 ml # Voids 2 2 1 # Bowel Movements 1 0 1 Result Diagram: 05/14/17 0100 05/14/17 1343 Imaging Last 72 hours Impressions Neck CTA 05/14/17 0057 Signed Impressions: Service Date/Time: Sunday, May 14, 2017 01:09 - CONCLUSION: Minimal atherosclerotic plaquing, otherwise unremarkable. Bridger Medrano MD Head CTA 05/14/17 0057 Signed Impressions: Service Date/Time: Sunday, May 14, 2017 01:09 - CONCLUSION: Unremarkable study except for minimal atherosclerotic plaquing on the left side. Bridger Medrano MD Head CT 05/14/17 0000 Signed Impressions: Service Date/Time: Sunday, May 14, 2017 01:03 - CONCLUSION: Chronic and small vessel ischemic changes without any evidence for acute hemorrhage or mass effect. Bridger Medrano MD Chest X-Ray 05/14/17 0000 Signed Impressions: Service Date/Time: Sunday, May 14, 2017 01:23 - CONCLUSION: No acute cardiopulmonary disease. 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 check labs Appreciate Dr. Conley seeing patient. Plavix DC and started on full dose Lovenox continue ASA Neuro vitals monitoring Workup with 2-D echo- history of CMP CTA neck shows no stenosis in the carotids. PT/OT speech therapy consult History of Cardiomyopathy status post AICD . Not in clinical failure. Check a 2-D echo. HYpertension- elevated readings patient on ARB- Cozaar change BB to Coreg 25 mg po bid ADD- diuretics- HCTZ 25 mg po daily prn IV meds cardiology consulted FF BMP HYpokalemia- improved. KCL daily. BMP today History of hyperlipidemia unable to tolerate statins in the past. dietitian consult. History of depression.- on Zoloft on Lovenox Cuco Huston MD May 15, 2017 08:37
[2017-05-15] MEDS ORDERED: cloNIDine HCL 0.1 MG TAB PO PRN (09:00)
[2017-05-15] MEDS ORDERED: CLOPIDOGREL 75 MG TAB PO SCH (09:00)
[2017-05-15] MEDS: ENOXAPARIN SODIUM 30 MG/0.3 ML SYRINGE SQ SCH ×2 (09:00→21:00)
[2017-05-15] MEDS: SODIUM CHLORIDE 0.9% FLUSH 5 ML FLUSH IV FLUSH SCH ×2 (09:00→20:00)
[2017-05-15] MEDS: SERTRALINE HCL 50 MG TAB PO SCH (09:17)
[2017-05-15] MEDS: CHOLECALCIFEROL (VIT D3) 1000 UNIT TAB PO SCH (09:17)
[2017-05-15] MEDS: HYDROCHLOROTHIAZIDE 25 MG TAB PO SCH (09:17)
[2017-05-15] MEDS: POTASSIUM CHLORIDE 20 MEQ CONTROLLED RELEASE TAB PO SCH (09:17)
[2017-05-15] MEDS: CARVEDILOL 12.5 MG TAB PO SCH ×2 (09:17→20:04)
[2017-05-15] MEDS: LOSARTAN 50 MG TAB PO SCH (09:17)
[2017-05-15] MEDS: ASPIRIN 81 MG CHEW TAB CHEW SCH (09:17)
--- NOTE | 2017-05-15 09:56 | RADRPT ---
EXAM DATE/TIME: 05/15/2017 09:44 [facility] COMPARISON: CT BRAIN W/O CONTRAST, May 14, 2017, 1:03. INDICATIONS : Left upper extremity weakness. RADIATION DOSE: 44.85 CTDIvol (mGy) MEDICAL HISTORY : Stroke. Hypertension. Cardiovascular disease SURGICAL HISTORY : None. ENCOUNTER: Initial ACUITY: 1 day PAIN SCALE: 0/10 LOCATION: Bilateral head TECHNIQUE: Multiple contiguous axial images were obtained of the head. Using automated exposure control and adj ustment of the mA and/or kV according to patient size, radiation dose was kept as low as reasonably a chievable to obtain optimal diagnostic quality images. DICOM format image data is available electro nically for review and comparison. FINDINGS: There is mild atrophy and patchy and confluent areas of decreased attenuation in the bilateral subcor tical white matter, centrum semiovale and periventricular white matter again seen. No signs of acute infarct, intracranial hemorrhage, or mass. No fractures. CONCLUSION: No significant change has occurred. Jenaro Al MD on May 15, 2017 at 9:53 Board Certified Radiologist. This report was verified electronically.
[2017-05-15] MEDS: POTASSIUM CHLORIDE INJ 10 MEQ in DEXT 5%-NACL 0.9% 1000 ML INJ 1,000 ML IV SCH (10:06)
[2017-05-15 11:18] LABS: AUTOMATED NEUTROPHIL # 4.4 TH/MM3 (1.8-7.7); BASOPHIL % 0.5 % (0.0-2.0); EOSINOPHIL % 0.3 % (0.0-4.0); HEMATOCRIT 44.5 % (35.0-46.0); HEMO FLAGS DIFF FINAL; LYMPH % 13.4 % (9.0-44.0); LYMPHOCYTE # 0.8 TH/MM3 (1.0-4.8); MEAN CELL VOLUME 103.9 FL (80.0-100.0); MEAN CORPUSCULAR HEMOGLOBIN 34.1 PG (27.0-34.0); MEAN CORPUSCULAR HGB CONC 32.8 % (32.0-36.0); MONO % 8.3 % (0.0-8.0); NEUT % 77.5 % (16.0-70.0); PLATELET COUNT 202 TH/MM3 (150-450); RED BLOOD COUNT 4.28 MIL/MM3 (4.00-5.30); RED CELL DISTRIBUTION WIDTH 14.5 % (11.6-17.2); WHITE BLOOD COUNT 5.7 TH/MM3 (4.0-11.0)
[2017-05-15 11:38] LABS: BICARBONATE 22.9 MEQ/L (21.0-32.0); POTASSIUM 3.8 MEQ/L (3.5-5.1)
--- NOTE | 2017-05-15 13:42 | MB ---
cc: MARINO CHICAS DO DATE OF CONSULTATION: 05/15/2017 IMPRESSIONS 1. Cerebrovascular accident with previous history of same. 2. Dilated cardiomyopathy, etiology idiopathic, [place] [employer] Functional Class II, ejection fraction 20-25%. 3. Status post ICD November,, no shocks, the patient does not recall the craft worker of her ICD. 4. Depression. 5. Dyslipidemia, intolerant to statins. 6. Hypertension. RECOMMENDATIONS 1. I would start antithrombin therapy in the form of apixaban 5 mg b.i.d. 2. Continue aspirin 81 mg daily. 3. Discontinue Plavix. 4. I would recommend a transesophageal echocardiogram to rule out patent foramen ovale/small ASD. Echo report suggests an atrioseptal aneurysm. There was no evidence of intracardiac shunt on the transthoracic study. CLINICAL DATA Ms. Jc is a pleasant 67-year-old female visiting [facility] from her home in [place], she and her were actually preparing to return home. She had gone to the bathroom to have a bowel movement, her was asleep, when he woke up he found her skilled nursing slumped on the bed, she had garbled speech, altered mental status and weakness on her left upper extremity. She has had a previous stroke apparently an optic nerve stroke, it is unclear if this represented amaurosis fugax or not. Cardiac risk factors include hypertension and dyslipidemia, as noted above she is intolerant to statins. She is a cigarette smoker and smokes three-quarters of a pack per day, does not use alcohol, has no exposure to chemotherapy agents, she has no history of diabetes. There apparently is no family history of precocious coronary artery disease, and it should be noted that when the patient had her optic nerve stroke she was apparently on hormone replacement therapy. She has had no recent chest pain, she has had no syncope, she has had no shocks from her defibrillator. She has no previous history of seizure, she has no history of asthma, she denies emphysema, she has no history of GI bleeding, acid peptic disease or reflux. There is no history of liver or gallbladder disease. Surgical history includes ICD. She has had no recent chest pain. She has had no unusual shortness of breath, PND or orthopnea. She has had no lower extremity edema, no claudication type symptoms, no recent febrile episodes. PHYSICAL EXAMINATION GENERAL: Physical exam at this time demonstrates an alert oriented female, She is in no apparent distress, She is sitting up in bed. She is not dyspneic nor tachypneic on room air. VITAL SIGNS: Her blood pressure is approximately 85, O2 saturation 91% when last recorded, she in normal sinus rhythm and has no history of a-fib. HEENT EXAM: Anicteric sclerae. Jugular venous pressures are normal. There are no carotid bruits. NECK: No obvious thyromegaly. LUNGS: She has clear lung estes. CARDIAC EXAM: Regular rate and rhythm with no clicks, rubs, gallops or murmurs currently noted. ABDOMINAL EXAM: Deferred. EXTREMITIES: Extremities are free of cyanosis, clubbing and edema. An echocardiogram demonstrates dilated cardiomyopathy, left ventricular chamber size around 5 cm in diastole with an atrioseptal aneurysm, no evidence intracardiac shunt. A 12-lead electrocardiogram demonstrates sinus rhythm with normal ventricular axis. There is initial poor R-wave progression and nonspecific ST-T changes. LABORATORY STUDIES White cell count 5700, hematocrit 45%, there are macrocytic indices, platelet count 202. Lytes: 141, 3.8, 109, 22 with a BUN of 11, a creatinine of 0.5, calcium 9.1, total cholesterol was 100, LDL cholesterol 45, HDL cholesterol 37. ALLERGIES PENICILLIN. MEDICATIONS Her medications at the time of admission included - 1. Zoloft 50 daily. 2. Metoprolol XL 25 daily. 3. Furosemide 40 daily. 4. Aspirin 81 daily. 5. Cozaar 50 daily. 6. Potassium chloride 20 daily. 7. Vitamin D daily. 8. Her told me that she had been on Plavix. This is not recorded in the H&P however. DISCUSSION This is a 67-year-old female with cerebrovascular accident. She has had quick resolution of her symptoms but still has mild dysarthria and still has weakness in her left upper extremity. Recommendations are as noted above. DO ELIZABETH Brown/YISEL /12:35 PM /12:58 PM
[2017-05-15] MEDS: APIXABAN 5 MG TABLET PO SCH (20:03)
[2017-05-16] VITALS (10 sets, daily range): BP systolic 112–167; BP diastolic 69–87; PULSE 62–106; RESP 19–26; TEMP 95.6–98.1; O2SAT 90–100
[2017-05-16] MEDS: CHLORHEXIDINE GLUCONATE 2 % 1 PACK (2 CLOTHS)(taper/protocol) TOPICAL SCH (03:42)
[2017-05-16] MEDS: ASPIRIN 81 MG CHEW TAB CHEW SCH (08:31)
[2017-05-16] MEDS: CARVEDILOL 12.5 MG TAB PO SCH ×2 (08:31→21:04)
[2017-05-16] MEDS: SERTRALINE HCL 50 MG TAB PO SCH (08:31)
[2017-05-16] MEDS: POTASSIUM CHLORIDE 20 MEQ CONTROLLED RELEASE TAB PO SCH (08:31)
[2017-05-16] MEDS: SODIUM CHLORIDE 0.9% FLUSH 5 ML FLUSH IV FLUSH SCH ×2 (08:32→21:00)
[2017-05-16] MEDS: HYDROCHLOROTHIAZIDE 25 MG TAB PO SCH (08:32)
[2017-05-16] MEDS: APIXABAN 5 MG TABLET PO SCH ×2 (08:32→21:04)
[2017-05-16] MEDS: LOSARTAN 50 MG TAB PO SCH (08:32)
[2017-05-16] MEDS: CHOLECALCIFEROL (VIT D3) 1000 UNIT TAB PO SCH (08:32)
--- NOTE | 2017-05-16 12:49 | HHI.PR ---
Subjective Remarks very very mild decreased hand gri[ speech better- per patient and - baseline no complains Objective Vitals Vital Signs Date Time Temp Pulse Resp B/P Pulse Ox O2 Delivery O2 Flow Rate FiO2 05/16/17 06:00 67 05/16/17 04:00 68 05/16/17 04:00 98.1 68 21 124/86 90 05/16/17 02:00 73 05/16/17 00:00 97.2 66 21 114/78 91 05/16/17 00:00 66 05/15/17 22:00 95 21 05/15/17 22:00 68 05/15/17 20:00 97.6 79 29 134/94 91 05/15/17 20:00 79 05/15/17 18:00 80 05/15/17 16:00 98.4 71 18 123/91 95 05/15/17 16:00 71 05/15/17 14:00 72 I/O 05/15/17 05/15/17 05/15/17 05/16/17 05/16/17 05/16/17 07:00 15:00 23:00 07:00 15:00 23:00 Intake Total 253 ml 1170 ml 843 ml 556 ml Output Total 250 ml 560 ml Balance 253 ml 920 ml 283 ml 556 ml Intake Oral 720 ml 360 ml 240 ml IV Total 253 ml 450 ml 483 ml 316 ml Output Urine Total 250 ml 560 ml # Voids 1 3 3 # Bowel Movements 1 1 0 0 Result Diagram: 05/15/17 1041 05/15/17 1041 Imaging Last [address] 05/15/17 0000 Signed Impressions: Service Date/Time: Monday, May 15, 2017 09:44 - CONCLUSION: No significant change has occurred. Jenaro Al MD Neck CTA 05/14/1756 Signed Impressions: Service Date/Time: Sunday, May 14, 2017 01:09 - CONCLUSION: Minimal atherosclerotic plaquing, otherwise unremarkable. Bridger Medrano MD Head CTA 05/14/1756 Signed Impressions: Service Date/Time: Sunday, May 14, 2017 01:09 - CONCLUSION: Unremarkable study except for minimal atherosclerotic plaquing on the left side. Bridger Medrano MD Head CT 05/14/17 0000 Signed Impressions: Service Date/Time: Sunday, May 14, 2017 01:03 - CONCLUSION: Chronic and small vessel ischemic changes without any evidence for acute hemorrhage or mass effect. Bridger Medrano MD Chest X-Ray 05/14/17 0000 Signed Impressions: Service Date/Time: Sunday, May 14, 2017 01:23 - CONCLUSION: No acute cardiopulmonary disease. 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 Conley seeing patient. Plavix DC and started on full dose Lovenox continue ASA Neuro vitals monitoring Workup with 2-D echo- history of CMP- unremarkable. appreciate cardiology- recommends PFO- states they will have it done in [place] CTA neck shows no stenosis in the carotids. PT/OT speech therapy ff- improving started on Eliquis. DC Lovenox History of Cardiomyopathy status post AICD . Not in clinical failure. HYpertension- better readings patient on ARB- Cozaar change BB to Coreg 25 mg po bid HCTZ 25 mg po daily prn IV meds FF BMP HYpokalemia- improved. KCL daily. History of hyperlipidemia unable to tolerate statins in the past. dietitian consult. History of depression.- on Cuco Tian MD May 16, 2017 12:49
--- NOTE | 2017-05-16 13:59 | PD.CARD.PN ---
Objective Vital Signs / I&O Vital Signs Date Time Temp Pulse Resp B/P Pulse Ox O2 Delivery O2 Flow Rate FiO2 05/16/17 06:00 67 05/16/17 04:00 68 05/16/17 04:00 98.1 68 21 124/86 90 05/16/17 02:00 73 05/16/17 00:00 97.2 66 21 114/78 91 05/16/17 00:00 66 05/15/17 22:00 95 21 05/15/17 22:00 68 05/15/17 20:00 97.6 79 29 134/94 91 05/15/17 20:00 79 05/15/17 18:00 80 05/15/17 16:00 98.4 71 18 123/91 95 05/15/17 16:00 71 05/15/17 14:00 72 I/O 05/15/17 05/15/17 05/15/17 05/16/17 05/16/17 05/16/17 07:00 15:00 23:00 07:00 15:00 23:00 Intake Total 253 ml 1170 ml 843 ml 556 ml Output Total 250 ml 560 ml Balance 253 ml 920 ml 283 ml 556 ml Intake Oral 720 ml 360 ml 240 ml IV Total 253 ml 450 ml 483 ml 316 ml Output Urine Total 250 ml 560 ml # Voids 1 3 3 # Bowel Movements 1 1 0 0 Assessment and Plan Discussed Condition With PT STABLE SPEECH AND LUE STRENGTH BETTER NO C/O CP SOB PALPITATIONS OTHERWISE STABLE OK TO DC CV RAIMREZ DC LOVENOX CONTINUE ALL 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
[2017-05-16] MEDS: POTASSIUM CHLORIDE INJ 10 MEQ in DEXT 5%-NACL 0.9% 1000 ML INJ 1,000 ML IV SCH (21:47)
[2017-05-17 00:49] VITALS: PULSE 70
[2017-05-17] MEDS: CHLORHEXIDINE GLUCONATE 2 % 1 PACK (2 CLOTHS)(taper/protocol) TOPICAL SCH (01:01)
[2017-05-17] MEDS: POTASSIUM CHLORIDE INJ 10 MEQ in DEXT 5%-NACL 0.9% 1000 ML INJ 1,000 ML IV SCH (01:01)
[2017-05-17 07:00] VITALS: PULSE 76
[2017-05-17 08:00] VITALS: BP 124/85; PULSE 70; RESP 20; TEMP 97.2; O2SAT 96
--- NOTE | 2017-05-17 08:27 | HHI.PR ---
Subjective Remarks patient doing very well no complains of chest pain or shortness of breath, noheadaches no swallowing difficulty speech clearer Objective Vitals Vital Signs Date Time Temp Pulse Resp B/P Pulse Ox O2 Delivery O2 Flow Rate FiO2 05/17/17 00:49 70 05/16/17 20:54 97.0 74 20 118/83 99 05/16/17 16:39 95.6 66 19 112/80 97 05/16/17 14:00 65 05/16/17 12:00 97.2 105 26 140/69 100 05/16/17 12:00 63 05/16/17 10:00 62 I/O 05/16/17 05/16/17 05/16/17 05/17/17 05/17/17 05/17/17 07:00 15:00 23:00 07:00 15:00 23:00 Intake Total 556 ml 1120 ml 800 ml Output Total 200 ml Balance 556 ml 920 ml 800 ml Intake Oral 240 ml 720 ml 800 ml IV Total 316 ml 400 ml Output Urine Total 200 ml # Voids 3 1 3 # Bowel Movements 0 1 0 1 Result Diagram: 05/15/17 1041 05/15/17 1041 Imaging Last Impressions Head CT 05/15/17 0000 Signed Impressions: Service Date/Time: Monday, May 15, 2017 09:44 - CONCLUSION: No significant change has occurred. Jenaro Al MD Neck CTA 05/14/1756 Signed Impressions: Service Date/Time: Sunday, May 14, 2017 01:09 - CONCLUSION: Minimal atherosclerotic plaquing, otherwise unremarkable. Bridger Medrano MD Head CTA 05/14/1756 Signed Impressions: Service Date/Time: Sunday, May 14, 2017 01:09 - CONCLUSION: Unremarkable study except for minimal atherosclerotic plaquing on the left side. Bridger Medrano MD Chest X-Ray 05/14/17 0000 Signed Impressions: Service Date/Time: Sunday, May 14, 2017 01:23 - CONCLUSION: No acute cardiopulmonary disease. 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 Conley seeing patient. continue ASA. Neuro vitals monitoring Workup with 2-D echo- history of CMP- unremarkable. appreciate cardiology- recommends [facility] - r/o PFO- states they will have it done in [place]- CTA neck shows no stenosis in the carotids. PT/OT speech therapy ff- improving started on Eliquis 5 mg po bid History of Cardiomyopathy status post AICD . Not in clinical failure. HYpertension- better readings patient on ARB- Cozaar Coreg 25 mg po bid HCTZ 25 mg po daily FF BMP HYpokalemia- improved. KCL daily. History of hyperlipidemia unable to tolerate statins in the past. seen by dietitian History of depression.- on Zoloft DC home today FF up with PCP and a chemical engineering teacher in [place] will see their chemical engineering teacher - recommends [facility]A by our chemical engineering teacher d/w patient and Cuco Huston MD May 17, 2017 08:27
[2017-05-17] MEDS ORDERED: APIX5TAB PO (08:38)
[2017-05-17] MEDS ORDERED: HYDR25TA5 PO (08:38)
[2017-05-17] MEDS ORDERED: CARV12.5 PO (08:38)
[2017-05-17] MEDS: SERTRALINE HCL 50 MG TAB PO SCH (08:40)
[2017-05-17] MEDS: APIXABAN 5 MG TABLET PO SCH (08:40)
[2017-05-17] MEDS: CARVEDILOL 12.5 MG TAB PO SCH (08:40)
[2017-05-17] MEDS: LOSARTAN 50 MG TAB PO SCH (08:40)
[2017-05-17] MEDS: POTASSIUM CHLORIDE 20 MEQ CONTROLLED RELEASE TAB PO SCH (08:41)
[2017-05-17] MEDS: SODIUM CHLORIDE 0.9% FLUSH 5 ML FLUSH IV FLUSH SCH (08:41)
[2017-05-17] MEDS: HYDROCHLOROTHIAZIDE 25 MG TAB PO SCH (08:42)
[2017-05-17] MEDS: CHOLECALCIFEROL (VIT D3) 1000 UNIT TAB PO SCH (08:42)
--- NOTE | 2017-05-17 08:42 | HHI.DS ---
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 Patient states that on both episodes she was placed she was on hormone replacement therapy then. 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 Patient tried to get back to bed however was having difficulty getting back to bed. heard her and found her to trying to climb into the bed and was on the side of the bed trying to get into bed. Her speech was very slurred per her . noted the patient appears confused "not really there". Patient reported that her she cannot feel her left side. 911 was called and patient was promptly brought in here and admitted for further evaluation. No seizure activity was reported by . Patient denies any fever chills , nausea or vomiting. Patient baseline have leg swelling at the end of the day. With easy fatigability. Denies any orthopnea. CBC/BMP: 05/15/17 1041 05/15/17 1041 Significant Findings Laboratory Tests Test 05/14/17 05/15/17 05/15/17 13:43 05:16 10:41 Chloride Level 108 MEQ/L 109 MEQ/L (98-107) (98-107) Random Glucose 107 MG/DL 158 MG/DL (74-106) (74-106) Total Bilirubin 1.5 MG/DL (0.2-1.0) Aspartate Amino Transf 42 U/L (15-37) (AST/SGOT) Albumin 3.2 GM/DL (3.4-5.0) Cholesterol Level 112 MG/DL 100 MG/DL (120-200) (120-200) HDL Cholesterol 38.7 MG/DL 37.1 MG/DL (40.0-60.0) (40.0-60.0) Mean Corpuscular Volume 103.9 FL (80.0-100.0) Mean Corpuscular Hemoglobin 34.1 PG (27.0-34.0) Neutrophils (%) (Auto) 77.5 % (16.0-70.0) Monocytes (%) (Auto) 8.3 % (0.0-8.0) Lymphocytes # (Auto) 0.8 TH/MM3 (1.0-4.8) Imaging Last Impressions Head CT 05/15/17 0000 Signed Impressions: Service Date/Time: Monday, May 15, 2017 09:44 - CONCLUSION: No significant change has occurred. Jenaro Al MD Neck CTA 05/14/1756 Signed Impressions: Service Date/Time: Sunday, May 14, 2017 01:09 - CONCLUSION: Minimal atherosclerotic plaquing, otherwise unremarkable. Bridger Medrano MD Head CTA 05/14/1756 Signed Impressions: Service Date/Time: Sunday, May 14, 2017 01:09 - CONCLUSION: Unremarkable study except for minimal atherosclerotic plaquing on the left side. Bridger Medrano MD Chest X-Ray 05/14/17 Signed Impressions: Service Date/Time: Sunday, May 14, 2017 01:23 - CONCLUSION: No acute cardiopulmonary disease. 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 speech clear ambulating independently Hospital Course 67-year-old female presenting with recurrent CVA presenting with slurring of speech and left-sided weakness TIA-repeat Head CT negative Appreciate Dr. Conley seeing patient. Neuro vitals monitoring Workup with 2-D echo- history of CMP- unremarkable. appreciate cardiology- recommends [facility] - r/o PFO- states they will have it done in [place]- CTA neck shows no stenosis in the carotids. PT/OT speech therapy ff- improving started on Eliquis 5 mg po bid. History of Cardiomyopathy status post AICD . Not in clinical failure. HYpertension- better readings patient on ARB- Cozaar Coreg 25 mg po bid HCTZ 25 mg po daily BMP as OP HYpokalemia- improved. KCL 20 meq daily History of hyperlipidemia unable to tolerate statins in the past. seen by dietitian History of depression.- on Zoloft DC home today FF up with PCP and a manager renewable energy in [place] and ff up with a neurologist in [place] will see their manager renewable energy - recommends [facility]A by our manager renewable energy d/w patient and Pt Condition on Discharge: Stable Discharge Disposition: Discharge Home Discharge Time: <= 30 minutes Discharge Instructions DIET: Follow Instructions for: Heart Healthy Diet Speech Therapy-Diet Recommends: Regular Activities you can perform: Weight Bearing as Cady Activities to Avoid: Strenuous Activity Follow up Referrals: Cardiology - 2-3 Days with [place] Neurology - 3-5 Days with [place] PCP Follow-up - 2-3 Days with [place] PCP New Medications: Apixaban (Eliquis) 5 Mg Tab 5 MG PO BID TIA/CVA Days 30 TAB Carvedilol (Coreg) 12.5 Mg Tab 25 MG PO Q12HR CMP Days 30 TAB Hydrochlorothiazide (Hydrochlorothiazide) 25 Mg Tab 25 MG PO DAILY CMP Days 30 TAB Continued Medications: Cholecalciferol (Vitamin D-1000) 1,000 Unit Tab 1000 UNITS PO DAILY Nutritional Supplement #1 Ref 0 BOTTLE Potassium Chloride ER (Potassium Chloride ER) 20 Meq Tab 20 MEQ PO DAILY Electrolyte Replacement #30 Ref 0 TAB Sertraline (Sertraline) 50 Mg Tab 50 MG PO DAILY #30 Ref 0 TAB ([Losartan Potassium]) 50 MG PO DAILY Discontinued Medications: Furosemide (Furosemide) 40 Mg Tab 40 MG PO DAILY #30 Ref 0 TAB Metoprolol Succinate ER 24 HR (Metoprolol Succinate ER 24 HR) 25 Mg Tab 25 MG PO DAILY #30 Ref 0 TAB Cuco Huston MD May 17, 2017 08:42 Cuco Huston MD May 17, 2017 08:42
[2017-05-17] MEDS: ASPIRIN 81 MG CHEW TAB CHEW SCH (08:46)
== END 2017-05-17 10:40 | disposition home or self-care (01) | DRG 69 ==
LOC: NEPC 00:53 → NEDA 02:30 → HIME 06:10 → N05A 05-16 15:50
PROVIDERS: ADMIT Internal Medicine; ATTEND Internal Medicine
DX: G45.9 Transient cerebral ischemic attack, unspecified (principal); I42.0 Dilated cardiomyopathy; I69.898 Other sequelae of other cerebrovascular disease; I10 Essential (primary) hypertension; E78.5 Hyperlipidemia, unspecified; F17.210 Nicotine dependence, cigarettes, uncomplicated; F32.9 Major depressive disorder, single episode, unspecified; H53.8 Other visual disturbances; E87.6 Hypokalemia; Z95.810 Presence of automatic (implantable) cardiac defibrillator; Z79.82 Long term (current) use of aspirin
CPT/HCPCS: 70450; 70496; 70498; 71010; 80048; 80053; 80061; 80307; 81001; 82435; 82550; 82565; 82947; 82948; 83036; 84132; 84295; 84443; 84484; 84520; 84702; 85025; 85384; 85610; 85730; 86850; 86900; 86901; 87641; 93005; 93306; 96360; J1650; J3480; J7030; J7042; Q9967